=== PATIENT | male | born 1930 | race Caucasian/White ===

== ENCOUNTER 2016-08-18 07:17 | Emergency (ER) | payer MEDICARE, OTHER ==
--- NOTE | 2016-08-18 08:12 | EDM.PDOC ---
ED HPI GENERAL MEDICAL PROBLEM - General Chief Complaint: General Stated Complaint: SWELLING OF NECK Time Seen by Provider: 08/18/16 07:50 Source of Information: Reports: Patient History Limitations: Reports: No limitations - History of Present Illness INITIAL COMMENTS - FREE TEXT/NARRATIVE: Patient arrives this AM due to swelling to the right side of his neck. He had right carotid endarterectomy on Thursday and discharged Thursday. This was done in [place] at [facility]. He denies fever or chills. He does have some numbness, tingling, and speech difficulties to that right side, this was present immediately post operatively. He has no other concerns. became concerned due to post operative instructions indicating swelling as a reason to contact a medical provider. Onset: gradual Onset Date: 08/18/16 Location: Reports: neck Quality: Reports: Other (no pain) Severity: mild Improves with: Reports: None Worsens with: Reports: None Context: Reports: Other (post operative) Associated Symptoms: Reports: other (speech changes as well as numbness and tingling to the right side of his neck and face - this is from surgery and present immediately post op.) - Related Data Allergies Allergy/AdvReac Type Severity Reaction Status Date / Time Penicillins Allergy Cannot Verified 08/18/16 08:17 Remember morphine AdvReac Change Verified 08/18/16 08:17 Mental Status Home Meds: Home Meds Multivitamin [Multi Vitamin Daily] 1 each PO DAILY 02/12/14 [History] Latanoprost [Latanoprost] 1 drop EYEBOTH BEDTIME 11/20/14 [History] Simvastatin [Simvastatin] 10 mg PO BEDTIME 11/20/14 [History] Timolol Hemihydrate [Betimol 0.5% Ophth Soln] 1 drop EYEBOTH DAILY 11/20/14 [ History] Metoprolol Succinate [Toprol XL] 50 mg PO DAILY 05/26/16 [History] Rivaroxaban [Xarelto] 1 tab PO WITHDINNER 05/26/16 [History] Ketorolac [Toradol] 10 mg PO Q6H PRN 08/18/16 [History] Past Medical History HEENT History: Reports: Cataract Cardiovascular History: Reports: High cholesterol, Hypertension - Past Surgical History HEENT Surgical History: Reports: Cataract surgery GI Surgical History: Reports: Appendectomy, Cholecystectomy Endocrine Surgical History: Reports: Parathyroidectomy Musculoskeletal Surgical History: Reports: Knee replacement Social & Family History - Tobacco Use Smoking Status *Q: Former Smoker - Alcohol Use Days Per Week of Alcohol Use: 0 - Recreational Drug Use Recreational Drug Use: No - Living Situation & Occupation Living situation: Reports: , with spouse Occupation: retired ED ROS GENERAL - Review of Systems Review Of Systems: ROS reveals no pertinent complaints other than HPI. ED EXAM, GENERAL - Physical Exam Exam: See Below Exam Limited By: No limitations General Appearance: alert, WD/WN, no apparent distress Eye Exam: bilateral eye: EOMI, PERRL Nose: normal inspection Throat/Mouth: Normal inspection, Normal oropharynx Head: atraumatic, normocephalic Neck: supple, non-tender, full range of motion, other (right sided swelling to incisional area right anterior neck). No: normal inspection, carotid bruit Respiratory/Chest: no respiratory distress, lungs clear Cardiovascular: normal peripheral pulses, regular rate, rhythm Peripheral Pulses: 1+: carotid (L), carotid (R) Neurological: alert, oriented, CN II-XII intact, normal cognition, normal gait, sensory/motor deficit (some speech changes evident with right facial deficit from surgery) Psychiatric: normal affect, normal mood Skin Exam: Warm, Dry, Intact, Normal color Course - Vital Signs Last Recorded V/S: Last Vital Signs Temp 36.2 C 08/18/16 07:30 Pulse 89 08/18/16 07:30 Resp 18 08/18/16 07:30 BP 133/89 08/18/16 07:30 Pulse Ox 93 L 08/18/16 07:30 - Orders/Labs/Meds Orders: Active Orders 24 hr Category Date Time Status Soft Tissue Neck wo Cont [CT] Stat Exams 08/18/16 08:00 Taken Labs: Laboratory Tests 08/18/16 Range/Units 08:20 WBC 6.5 (4.0-10.0) x10^3/uL RBC 4.31 L (4.5-6.0) x10^6/uL Hgb 13.1 L (14.0-18.0) g/dL Hct 40.2 (40.0-52.0) % MCV 93.3 H (78.0-93.0) fL MCH 30.4 (26.0-32.0) pg MCHC 32.6 (32.0-36.0) g/dL RDW Coeff of Elpidio 14.1 (10.0-15.0) % Plt Count 137 (130-400) x10^3/uL Neut % (Auto) 61.8 (50.0-80.0) % Lymph % (Auto) 23.6 L (25.0-50.0) % [place] % (Auto) 10.8 (2.0-11.0) % Eos % (Auto) 3.5 (0.0-4.0) % Baso % (Auto) 0.3 (0.2-1.2) % Departure - Departure Time of Disposition: 09:51 Disposition: Home, Self-Care 01 Clinical Impression: Neck swelling Instructions: Carotid Endarterectomy, Care After Referrals: Stephie Adan, DO [Primary Care Provider] - Forms: ED Department Discharge Additional Instructions: Your swelling does appear to be a normal product of the healing process. Your CT was negative for any acute processes. Keep your follow up appointment with your surgeon and call his office if you have additional questions As always, you can return if your swelling worsens, or other symptoms present that require medical attention on your discharge orders including sudden shortness of breath, stroke like symptoms on one side of the body, chest pain, red, swollen, painful lower extremity. Please call with any questions. - Problem List & Annotations (1) Neck swelling SNOMED Code(s): 005471341 Code(s): R22.1 - LOCALIZED SWELLING, MASS AND LUMP, NECK Status: Acute Priority: Low - Problem List Review Problem List Initiated/Reviewed/Updated: Yes - My Orders Last 24 Hours: My Active Orders 08/18/16 08:00 Soft Tissue Neck wo Cont [CT] Stat - Assessment/Plan Last 24 Hours: My Active Orders 08/18/16 08:00 Soft Tissue Neck wo Cont [CT] Stat Assessment:: Neck swelling secondary to surgical intervention/right carotid endarterectomy Plan: Your swelling does appear to be a normal product of the healing process. Your CT was negative for any acute processes. Keep your follow up appointment with your surgeon and call his office if you have additional questions As always, you can return if your swelling worsens, or other symptoms present that require medical attention on your discharge orders including sudden shortness of breath, stroke like symptoms on one side of the body, chest pain, red, swollen, painful lower extremity. Please call with any questions.
[2016-08-18 08:14] VITALS: BP 133/89
[2016-08-18 08:29] LABS: BASOPHILS PERCENT AUTO 0.3 % (0.2-1.2); EOSINOPHILS PERCENT AUTO 3.5 % (0.0-4.0); HEMATOCRIT 40.2 % (40.0-52.0); HEMOGLOBIN 13.1 g/dL (14.0-18.0); LYMPHOCYTES PERCENT AUTO 23.6 % (25.0-50.0); MEAN CORPUSCULAR HEMOGLOBIN 30.4 pg (26.0-32.0); MEAN CORPUSCULAR HGB CONC 32.6 g/dL (32.0-36.0); MEAN CORPUSCULAR VOLUME 93.3 fL (78.0-93.0); MONOCYTES PERCENT AUTO 10.8 % (2.0-11.0); NEUTROPHILS PERCENT AUTO 61.8 % (50.0-80.0); RDW CV 14.1 % (10.0-15.0); RED BLOOD CELL COUNT 4.31 x10^6/uL (4.5-6.0)
== END 2016-08-18 09:51 | disposition home or self-care (01) ==
LOC: VM.ED 07:17
DX: R22.1 Localized swelling, mass and lump, neck (principal); E78.5 Hyperlipidemia, unspecified; I10 Essential (primary) hypertension; Z88.0 Allergy status to penicillin; Z88.5 Allergy status to narcotic agent; Z79.899 Other long term (current) drug therapy; Z87.891 Personal history of nicotine dependence
CPT/HCPCS: 36415; 70490; 85025; 99282-GF; 99284

== ENCOUNTER 2017-10-26 06:47 | Day surgery (SDC) | payer MEDICARE, OTHER ==
[~2017-10-26 06:47] MED LIST: Lactated Ringers 1,000 ML IV SCH
[2017-10-26] MEDS ORDERED: Bupivacaine 0.25%/EPINEPHrine 1:200,000 30 ML SDV ONE (08:38)
[2017-10-26] MEDS ORDERED: Propofol 200 MG/20 ML SDV ONE (08:46)
[2017-10-26] MEDS ORDERED: fentaNYL 100 MCG/2 ML SDV ONE (08:46)
[2017-10-26] MEDS ORDERED: Bupivacaine 0.25%/EPINEPHrine 1:200,000 30 ML SDV INJECT ONE ×2 (09:18)
[2017-10-26] MEDS ORDERED: Naloxone 0.4 MG/ML SDV ONE (09:35)
[2017-10-26 10:34] VITALS: BP 104/39
--- NOTE | 2017-10-26 12:45 | OR ---
PREOPERATIVE DIAGNOSIS: Bilateral long finger, trigger finger. PROCEDURE PROPOSED: 1. Right long trigger finger release. 2. Left long trigger finger release. PROCEDURE DONE: 1. Right long trigger finger release. 2. Left long trigger finger release. CENTER MANAGER: Stephanie. INDICATION: This is an elderly gentleman with rather significant and symptomatic bilateral long finger trigger finger problems with significant clicking and locking, and I felt that he should proceed with bilateral release. TECHNIQUE: The patient was brought to the operative suite, given some IV sedation. His left hand was prepped and draped first. There was a tourniquet applied to the forearm. The area in which I was going to make the incision was locally anesthetized with 0.25% bupivacaine with epinephrine, and the arm was then exsanguinating and tourniquet inflated to 250 mmHg. A small vertical incision was made directly over the MP joint of the long finger. Dissection was carried down perpendicular to the underlying annular sheath. The annular sheath was then incised for a good centimeter or longer to free up the underlying flexor tendon. This showed good free movement following the release of the annular sheath. The wound was then irrigated and the skin was closed with 3 stitches of interrupted vertical mattress stitches of 5-0 Ethilon and a bandage was applied using Adaptic 2x2 and a clean dressing and the tourniquet was deflated with a tourniquet time of 8 minutes. Our attention was then drawn to the left hand as the left hand was then prepped and draped in the similar fashion. The area again was locally anesthetized with 0.25% Marcaine with epinephrine and a vertical incision was made after exsanguinating the arm and inflating the tourniquet to 250 mmHg. On the forearm, dissection carried down to the underlying annular sheath, which was incised and freed up for a good centimeter or slightly more freeing up the underlying flexor tendon nicely. The wound was then irrigated and the incision was closed with interrupted vertical mattress stitches of 5-0 Ethilon using 3 stitches. The wound was dressed in a similar fashion with Adaptic 2x2 and a clean dressing and the tourniquet was deflated with tourniquet time of 8 minutes. The entire procedure was then terminated as he was taken back to the recovery area in good condition. There was essentially no blood loss. SCM: 10/26/2017 09:41:43 MODL: 10/26/2017 12:20:13 /[id number]
== END 2017-10-26 11:10 | disposition home or self-care (01) ==
LOC: VM.SDS 06:47
PROVIDERS: ATTEND Surgery
DX: M65.331 Trigger finger, right middle finger (principal); M65.332 Trigger finger, left middle finger; K21.9 Gastro-esophageal reflux disease without esophagitis; I48.92 Unspecified atrial flutter; E78.5 Hyperlipidemia, unspecified; Z79.899 Other long term (current) drug therapy; Z88.0 Allergy status to penicillin; Z88.8 Allergy status to other drugs, medicaments and biological substances; Z90.49 Acquired absence of other specified parts of digestive tract; Z95.0 Presence of cardiac pacemaker; Z98.890 Other specified postprocedural states; Z90.89 Acquired absence of other organs; Z79.01 Long term (current) use of anticoagulants
CPT/HCPCS: 01810; J2310; J2704; J3010; J7120

== ENCOUNTER 2018-03-09 10:34 | Emergency (ER) | payer MEDICARE, OTHER ==
--- NOTE | 2018-03-09 10:42 | EDM.PDOC ---
ED HPI GENERAL MEDICAL PROBLEM - General Chief Complaint: General Stated Complaint: headache Time Seen by Provider: 03/09/18 10:38 Source of Information: Reports: Patient, Family, RN, RN Notes Reviewed History Limitations: Reports: No Limitations - History of Present Illness INITIAL COMMENTS - FREE TEXT/NARRATIVE: Patient presents to the ED at [facility] with a one month history of dizziness. Patient states he has been seen by his PCP but symptoms are getting worse. He has not fallen. No visual problems. He is trying to stay well hydrated. No chest pain or SOB. No focal neurological deficits. - Related Data Allergies Allergy/AdvReac Type Severity Reaction Status Date / Time Penicillins Allergy Hives Verified 03/09/18 10:47 morphine AdvReac Change Verified 03/09/18 10:47 Mental Status Home Meds: Home Meds Latanoprost 1 drop EYEBOTH BEDTIME 11/20/14 [History] Simvastatin 10 mg PO BEDTIME 11/20/14 [History] Timolol Hemihydrate [Betimol 0.5% Ophth Soln] 1 drop EYEBOTH DAILY 11/20/14 [ History] Metoprolol Succinate [Toprol XL] 50 mg PO DAILY 05/26/16 [History] Cholecalciferol (Vitamin D3) [D-2000] 2,000 unit PO DAILY 08/03/17 [History] Acetaminophen [Tylenol] 650 mg PO Q4H PRN 10/15/17 [History] Multivitamin [Daily Multiple Vitamin] 1 tab PO DAILY 10/15/17 [History] Rivaroxaban [Xarelto] 15 mg PO DAILY 10/15/17 [History] Past Medical History HEENT History: Reports: Glaucoma Other HEENT History: SARCOIDOSIS OF LUNG Cardiovascular History: Reports: High Cholesterol, Hypertension, Pacemaker, Pulmonary Hypertension, SOB on Exertion Other Cardiovascular History: CAROTID STENOSIS. A-FLUTTER. PACEMAKER. 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 LIPOMA LEFT UPPER EXTREMITY. CELLULITIS OF LEFT UPPER EXTREMITY. TOTAL KNEE ARTHROPLASTY. CERVICALGIA ( NECK PAIN) Other Neuro History: BENIGN POSITIONAL VERTIGO Psychiatric History: Reports: None Other Endocrine/Metabolic History: BENIGN NEOPLASM OF PARATHYROID GLAND Hematologic History: Reports: None Other Immunologic History: SEPTIC SHOCK Oncologic (Cancer) History: Reports: Bladder Other Dermatologic History: SEBORRHEIC KERATOSIS - Past Surgical History Head Surgeries/Procedures: Reports: None HEENT Surgical History: Reports: Cataract Surgery Cardiovascular Surgical History: Reports: Carotid Endarterectomy, Other (See Below) Other Cardiovascular Surgeries/Procedures: pacemeker insertion Respiratory Surgical History: Reports: Other (See Below) Other Respiratory Surgeries/Procedures: lung resection GI Surgical History: Reports: Appendectomy, Cholecystectomy, Colon, Colonoscopy , Hernia Repair/Other Male Surgical History: Reports: None Endocrine Surgical History: Reports: Parathyroidectomy Neurological Surgical History: Reports: None Musculoskeletal Surgical History: Reports: None, Knee Replacement Oncologic Surgical History: Reports: None Dermatological Surgical History: Reports: None Social & Family History - Living Situation & Occupation Living situation: Reports: , with Spouse Occupation: Retired ED ROS GENERAL - Review of Systems Review Of Systems: See Below Constitutional: Denies: Fever, Chills, Weakness, Fatigue Respiratory: Denies: Shortness of Breath, Cough Cardiovascular: Denies: Chest Pain, Palpitations GI/Abdominal: Denies: Abdominal Pain, Nausea, Vomiting Skin: Reports: No Symptoms Neurological: Reports: Dizziness, Headache. Denies: Numbness, Paresthesia, Tingling - Physical Exam Exam: See Below Exam Limited By: No Limitations General Appearance: Alert, No Apparent Distress Eye Exam: Bilateral Eye: EOMI, Normal Inspection, PERRL Ears: Normal External Exam, Normal Canal, Normal TMs Head Exam: Atraumatic, Normocephalic Neck: Supple Respiratory/Chest: No Respiratory Distress, Lungs Clear, Normal Breath Sounds Cardiovascular: Normal Peripheral Pulses, Regular Rate, Rhythm GI/Abdominal: Normal Bowel Sounds, Soft, Non-Tender Neuro Exam (Abbreviated): Alert, Oriented Skin Exam: Warm, Dry, Intact, Normal Color Course - Vital Signs Last Recorded V/S: Last Vital Signs Temp 36.7 C 03/09/18 10:38 Pulse 85 03/09/18 10:38 Resp 18 03/09/18 10:38 BP 143/80 H 03/09/18 10:38 Pulse Ox 94 L 03/09/18 10:38 - Orders/Labs/Meds Orders: Active Orders 24 hr Category Date Time Status Head wo Cont [CT] Stat Exams 03/09/18 10:38 Taken UA W/MICROSCOPIC [URIN] Stat Lab 03/09/18 11:39 Ordered Labs: Laboratory Tests 03/09/18 03/09/18 03/09/18 Range/Units 11:00 11:00 11:39 WBC 7.7 (4.0-10.0) x10^3/uL RBC 4.77 (4.5-6.0) x10^6/uL Hgb 14.7 D (14.0-18.0) g/dL Hct 44.2 (40.0-52.0) % MCV 92.7 (78.0-93.0) fL MCH 30.8 (26.0-32.0) pg MCHC 33.3 (32.0-36.0) g/dL RDW Coeff of Elpidio 13.7 (10.0-15.0) % Plt Count 159 (130-400) x10^3/uL Neut % (Auto) 60.7 (50.0-80.0) % Lymph % (Auto) 27.9 (25.0-50.0) % [place] % (Auto) 9.4 (2.0-11.0) % Eos % (Auto) 1.7 (0.0-4.0) % Baso % (Auto) 0.3 (0.2-1.2) % ESR 15 (0-16) mm/hr Sodium 138 (136-145) mmol/L Potassium 5.2 H (3.5-5.1) mmol/L Chloride 104 (98-107) mmol/L Carbon Dioxide 28 (21-32) mmol/L Anion Gap 11.2 (10-20) mmol/L BUN 23 H (7-18) mg/dL Creatinine 1.1 (0.70-1.30) mg/dL Est Cr Clr Drug Dosing TNP Estimated GFR (MDRD) > 60 Glucose 101 (74-106) mg/dL Calcium 8.9 (8.5-10.1) mg/dL C-Reactive Protein < 0.2 (<=0.9) mg/dL Urine Color Yellow (YELLOW) Urine Appearance Clear (CLEAR) Urine pH 5.5 (5.0-8.0) Ur Specific [place] <=1.005 Urine Protein Negative (NEGATIVE) mg/dL Urine Glucose (UA) Negative (NEGATIVE) mg/dL Urine Ketones Negative (NEGATIVE) mg/dL Urine Occult Blood Negative (NEGATIVE) Urine Nitrite Negative (NEGATIVE) Urine Bilirubin Negative (NEGATIVE) Urine Urobilinogen 0.2 (0.2) EU/dL Ur Leukocyte Esterase Negative (NEGATIVE) Urine RBC 0-5 (NOT SEEN) /HPF Urine WBC 0-5 (NOT SEEN) /HPF Ur Squamous Epith Cells Rare (NEGATIVE) /HPF Urine Bacteria Not seen (NEGATIVE) /HPF Urine Mucus Not seen (NEGATIVE) /LPF Meds: Medications Discontinued Medications Generic Name Dose Route Start Last Admin Trade Name Freq PRN Reason Stop Dose Admin Meclizine HCl 25 mg 03/09/18 11:25 03/09/18 11:32 Antivert PO 03/09/18 11:26 25 mg ONETIME ONE Administration - Radiology Interpretation Free Text/Narrative:: CT Head: Right sphenoid sinusitis with evidence of chronic infection. High attenuation material within the sinus could be form fungal infection or inspissated secretions No acute intracranial findings Moderate generalized atrophy and mild chronic small vessel disease ischemic changes See scanned report in EMR CT Results Date: 03/09/18 CT Results Time: 11:30 Departure - Departure Time of Disposition: 12:09 Disposition: Home, Self-Care 01 Condition: Good Clinical Impression: Dizziness - Discharge Information *PRESCRIPTION DRUG MONITORING PROGRAM REVIEWED*: Not Applicable *COPY OF PRESCRIPTION DRUG MONITORING REPORT IN PATIENT SUPRIYA: Not Applicable Instructions: Dizziness Referrals: Stephie Adan DO [Primary Care Provider] - Forms: ED Department Discharge Additional Instructions: 1. Stay well hydrated and rest 2. Labs and CT looked ok 3. May continue taking over the counter Antivert 4. See your Primary as symptoms warrant - Problem List Review Problem List Initiated/Reviewed/Updated: Yes - My Orders Last 24 Hours: My Active Orders 03/09/18 10:38 Head wo Cont [CT] Stat 03/09/18 11:39 UA W/MICROSCOPIC [URIN] Stat - Assessment/Plan Last 24 Hours: My Active Orders 03/09/18 10:38 Head wo Cont [CT] Stat 03/09/18 11:39 UA W/MICROSCOPIC [URIN] Stat Assessment:: Dizziness, unknown etiology Plan: Reviewed labs and CT with patient and . No acute emergency found. Will recommend trying Antivert at home and follow up wit PCP as symptoms warrant
[2018-03-09 11:21] LABS: ANION GAP 11.2 mmol/L (10-20); CHLORIDE,CL 104 mmol/L (98-107); SODIUM,NA 138 mmol/L (136-145)
[2018-03-09] MEDS ORDERED: Meclizine 25 MG Tab PO ONE (11:25)
[2018-03-09 12:26] VITALS: BP 143/80
== END 2018-03-09 12:17 | disposition home or self-care (01) ==
LOC: VM.ED 10:34
DX: R42 Dizziness and giddiness (principal); I10 Essential (primary) hypertension; E78.00 Pure hypercholesterolemia, unspecified; Z79.899 Other long term (current) drug therapy; Z88.5 Allergy status to narcotic agent; Z88.0 Allergy status to penicillin
CPT/HCPCS: 36415; 70450; 80048; 81001; 85025; 85652; 86140; 99284; 99284-GF; A9270-GY

== ENCOUNTER 2018-11-14 07:01 | Emergency (ER) | payer MEDICARE, OTHER ==
[2018-11-14 07:11] VITALS: BP 164/87
--- NOTE | 2018-11-14 07:28 | EDM.PDOC ---
ED HPI GENERAL MEDICAL PROBLEM - General Chief Complaint: Gastrointestinal Problem Stated Complaint: BLEEDING; POSSIBLE HEMRRHOIDS Time Seen by Provider: 11/14/18 07:17 Source of Information: Reports: Patient, Family, RN, RN Notes Reviewed History Limitations: Reports: No Limitations - History of Present Illness INITIAL COMMENTS - FREE TEXT/NARRATIVE: Patient presents to the ED at [facility] for the evaluation of rectal bleeding. Patient states he noticed blood in the toilet this morning after having a BM. Patient is concerned because he takes Xarelto. Patient has a history of internal hemorrhoids. Patient states he had 3 separate BM's that looked bloody. Patient denies any abdominal or pelvic pain. No rectal pain. Patient denies any headache or dizziness. No chest pain or SOB. Onset: Today Onset Date: 11/14/18 Onset Time: 06:00 - Related Data Allergies Allergy/AdvReac Type Severity Reaction Status Date / Time Penicillins Allergy Hives Verified 11/14/18 07:14 morphine AdvReac Change Verified 11/14/18 07:14 Mental Status Home Meds: Home Meds Latanoprost 1 drop EYEBOTH BEDTIME 11/20/14 [History] Simvastatin 10 mg PO BEDTIME 11/20/14 [History] Timolol Hemihydrate [Betimol 0.5% Ophth Soln] 1 drop EYEBOTH DAILY 11/20/14 [ History] Metoprolol Succinate [Toprol XL] 50 mg PO DAILY 05/26/16 [History] Cholecalciferol (Vitamin D3) [D-2000] 2,000 unit PO DAILY 08/03/17 [History] Acetaminophen [Tylenol] 650 mg PO Q4H PRN 10/15/17 [History] Multivitamin [Daily Multiple Vitamin] 1 tab PO DAILY 10/15/17 [History] Rivaroxaban [Xarelto] 15 mg PO DAILY 10/15/17 [History] Famotidine [Pepcid] 10 mg PO BID 11/14/18 [History] Past Medical History HEENT History: Reports: Glaucoma Other HEENT History: SARCOIDOSIS OF LUNG Cardiovascular History: Reports: High Cholesterol, Hypertension, Pacemaker, Pulmonary Hypertension, SOB on Exertion Other Cardiovascular History: CAROTID STENOSIS. A-FLUTTER. PACEMAKER. 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 LIPOMA LEFT UPPER EXTREMITY. CELLULITIS OF LEFT UPPER EXTREMITY. TOTAL KNEE ARTHROPLASTY. CERVICALGIA ( NECK PAIN) Other Neuro History: BENIGN POSITIONAL VERTIGO Psychiatric History: Reports: None Other Endocrine/Metabolic History: BENIGN NEOPLASM OF PARATHYROID GLAND Hematologic History: Reports: None Other Immunologic History: SEPTIC SHOCK Oncologic (Cancer) History: Reports: Bladder Other Dermatologic History: SEBORRHEIC KERATOSIS - Past Surgical History Head Surgeries/Procedures: Reports: None HEENT Surgical History: Reports: Cataract Surgery Cardiovascular Surgical History: Reports: Carotid Endarterectomy, Other (See Below) Other Cardiovascular Surgeries/Procedures: pacemeker insertion Respiratory Surgical History: Reports: Other (See Below) Other Respiratory Surgeries/Procedures: lung resection GI Surgical History: Reports: Appendectomy, Cholecystectomy, Colon, Colonoscopy , Hernia Repair/Other Male Surgical History: Reports: None Endocrine Surgical History: Reports: Parathyroidectomy Neurological Surgical History: Reports: None Musculoskeletal Surgical History: Reports: None, Knee Replacement Oncologic Surgical History: Reports: None Dermatological Surgical History: Reports: None Social & Family History - Tobacco Use Smoking Status *Q: Unknown Ever Smoked - Living Situation & Occupation Living situation: Reports: , with Spouse Occupation: Retired ED ROS GENERAL - Review of Systems Review Of Systems: See Below Constitutional: Denies: Fever, Chills Respiratory: Denies: Shortness of Breath, Cough Cardiovascular: Denies: Chest Pain, Palpitations GI/Abdominal: Reports: Bloody Stool. Denies: Abdominal Pain, Nausea, Vomiting Skin: Reports: No Symptoms Neurological: Denies: Dizziness, Headache ED EXAM, GI/ABD - Physical Exam Exam: See Below Exam Limited By: No Limitations General Appearance: Alert, No Apparent Distress Respiratory/Chest: No Respiratory Distress, Lungs Clear, Normal Breath Sounds Cardiovascular: Normal Peripheral Pulses, Regular Rate, Rhythm GI/Abdominal Exam: Normal Bowel Sounds, Soft, Non-Tender Rectal (Males) Exam: Hemorrhoids. No: Tenderness Neurological: Alert, Oriented Skin Exam: Warm, Dry, Intact, Normal Color Course - Vital Signs Last Recorded V/S: Last Vital Signs Temp 35.9 C 11/14/18 07:01 Pulse 86 11/14/18 07:01 Resp 20 11/14/18 07:01 BP 164/87 H 11/14/18 07:01 Pulse Ox 94 L 11/14/18 07:01 Departure - Departure Time of Disposition: 07:30 Disposition: Home, Self-Care 01 Condition: Good Clinical Impression: Rectal bleeding - Discharge Information *PRESCRIPTION DRUG MONITORING PROGRAM REVIEWED*: Not Applicable *COPY OF PRESCRIPTION DRUG MONITORING REPORT IN PATIENT SUPRIYA: Not Applicable Instructions: Rectal Bleeding, [id number] Referrals: Stephie Adan, [Primary Care Provider] - Additional Instructions: 1. Stay well hydrated and rest 2. Continue taking home medications as prescribed 3. See Dr. Adan this week in clinic 4. Call us with any questions or concerns - Problem List Review Problem List Initiated/Reviewed/Updated: Yes - Assessment/Plan Assessment:: Rectal bleeding Plan: Exam findings discussed with patient. No bleeding external hemorrhoids. Patient had some scant blood around anal opening. No active bleeding. Recommend patient to follow up with PCP this week for additional testing. Continue with Xarelto. Return to ED at symptoms warrant.
== END 2018-11-14 07:36 | disposition home or self-care (01) ==
LOC: VM.ED 07:01
DX: K62.5 Hemorrhage of anus and rectum (principal); I10 Essential (primary) hypertension; E78.00 Pure hypercholesterolemia, unspecified; K21.9 Gastro-esophageal reflux disease without esophagitis; Z79.899 Other long term (current) drug therapy; Z88.0 Allergy status to penicillin; Z88.1 Allergy status to other antibiotic agents
CPT/HCPCS: 99283; 99283-GF